=== PATIENT | female | born 1960 | race Caucasian/White ===

== ENCOUNTER → 2017-04-25 18:31 | Outpatient (CLI) | payer OTHER, SELFPAY | PROVIDERS: Visit Provider Nurse Practitioner Women's Health | DX: N39.0 Urinary tract infection, site not specified (principal) | CPT/HCPCS: 87086; 87088; 87186 ==

== ENCOUNTER → 2017-06-07 14:40 | Outpatient (CLI) | payer OTHER, SELFPAY ==
[2017-06-07 15:20] LABS: Anion Gap 6 (5-15); Chloride 102 mmol/L (98-107); Potassium 3.7 mmol/L (3.5-5.1); Sodium Level 138 mmol/L (136-145)
== END ==
PROVIDERS: Family Provider Family Medicine; PCP Family Medicine; Visit Provider Otolaryngology Otolaryngology/Facial Plastic Surgery
DX: Z79.899 Other long term (current) drug therapy (principal)
CPT/HCPCS: 36415; 80051

== ENCOUNTER → 2017-08-29 16:52 | Outpatient (CLI) | payer OTHER, SELFPAY | PROVIDERS: Family Provider Family Medicine; PCP Family Medicine; Visit Provider Nurse Practitioner Adult Health | DX: N39.0 Urinary tract infection, site not specified (principal) | CPT/HCPCS: 87077; 87086; 87088; 87186 ==

== ENCOUNTER → 2018-05-02 14:36 | Outpatient (CLI) | payer OTHER, SELFPAY ==
[2018-03-04 15:04] VITALS: BMI 21.4
--- NOTE | 2018-05-02 14:39 | BI_ITS ---
MAMMOGRAPHY - BILATERAL SCREENING REASON FOR EXAM: Female, 58 years old. Routine annual screening examination. PERTINENT HISTORY: Non-contributory. Chronic inversion of the left nipple. TECHNIQUE: Digital bilateral breast mukesh (3D mammographic acquisition) in the CC and MLO projections. 2-D mediolateral oblique (MLO) and craniocaudad (CC) views of both breasts were obtained. CAD: Full Field Digital Mammography with Computer Added Detection was performed. COMPARISON: Comparison is made with prior abdomen examination dated March 20, 2017. FINDINGS: Breast Composition: There are scattered areas of fibroglandular density. There are no dominant masses or suspicious calcifications. Stable small bilateral benign appearing axillary lymph nodes. No other significant abnormalities are identified. There has been no significant change since the prior study. BI/SCREENING MAMM (CAD), BILAT IMPRESSION: Stable bilateral screening mammogram. Yearly follow-up mammogram recommended. (A) ASSESSMENT CATEGORY: BIRADS Category 2: Benign. A letter regarding these results will be sent to the patient by the facility within 30 days. Approximately 10% of breast cancers are not detected by mammography. A normal mammogram should not delay biopsy of a clinically suspicious abnormality. [id number] Electronically Signed: Brice Ott MD at 11:16 EST , Service support ,
== END ==
PROVIDERS: Family Provider Family Medicine; PCP Family Medicine; Referring Provider Nurse Practitioner Women's Health; Visit Provider Nurse Practitioner Women's Health
DX: Z12.31 Encounter for screening mammogram for malignant neoplasm of breast (principal)
CPT/HCPCS: 77063; 77067

== ENCOUNTER → 2018-07-25 14:11 | Outpatient (CLI) | payer OTHER, SELFPAY ==
[2018-07-25 09:59] VITALS: BMI 21.4
[2018-07-25 14:50] LABS: Bacteria 0 SEEN /hpf (None Seen); Mucous, Urine 0 SEEN /hpf (<or=2+); Red Blood Cells-Urine 0 SEEN /hpf (0-5)
[2018-07-25 15:17] LABS: Color, Urine Yellow (Yellow); Glucose, Dipstick Normal (Normal); Ketone-Dipstick Negative (Negative); Leukocyte Esterase-Dipstick 100 /ul (Negative); Nitrite-Dipstick Negative (Negative); Occult Blood-Urine 50 /ul (Negative); Protein-Dipstick Negative (Negative); Specific Gravity, Urine 1.005 (1.002-1.030); Urine Bilirubin Dipstick Negative (Negative); Urine Clarity Sl. Cloudy (Clear); Urine Urobilinogen Normal (Normal)
[2018-07-25 15:32] LABS: Squamous Epithelial Cells - UA 0-5 SEEN /hpf (5-10); White Blood Cells 0-5 SEEN /hpf (0-5)
== END ==
PROVIDERS: Family Provider Family Medicine; PCP Family Medicine; Referring Provider Physician Assistant Medical; Visit Provider Physician Assistant Medical
DX: R30.0 Dysuria (principal)
CPT/HCPCS: 81001; 87086; 87088

== ENCOUNTER → 2019-03-31 13:42 | Outpatient (CLI) | payer OTHER, SELFPAY ==
[2019-03-31 09:52] VITALS: BMI 21.4
[2019-04-07 09:42] LABS: HPV APTIMA, High Risk Negative (Negative)
== END ==
PROVIDERS: Family Provider Family Medicine; PCP Family Medicine; Referring Provider Nurse Practitioner Women's Health; Visit Provider Nurse Practitioner Women's Health
DX: Z12.4 Encounter for screening for malignant neoplasm of cervix (principal)
CPT/HCPCS: 87624; 88175; G0145

== ENCOUNTER → 2019-05-04 14:42 | Outpatient (CLI) | payer OTHER, SELFPAY ==
[2019-03-31 09:52] VITALS: BMI 21.4
--- NOTE | 2019-05-04 14:43 | BI_ITS ---
MAMMOGRAPHY - BILATERAL SCREENING REASON FOR EXAM: Female, 59 years old. Routine annual screening examination. PERTINENT HISTORY: Non-contributory. Persistent left nipple inversion. TECHNIQUE: Digital bilateral breast nader (3D mammographic acquisition) in the CC and MLO projections. 2-D mediolateral oblique (MLO) and craniocaudad (CC) views of both breasts were obtained. CAD: Full Field Digital Mammography with Computer Added Detection was performed. COMPARISON: Comparison is made with prior examination dated May 02, 2018. FINDINGS: Breast Composition: There are scattered areas of fibroglandular density. There are no dominant masses or suspicious calcifications. Stable small bilateral benign appearing axillary lymph nodes. No other significant abnormalities are identified. There has been no significant change since the prior study. BI/SCREEN MAMM (CAD) W/NADER BILAT IMPRESSION: Stable bilateral screening mammogram. Yearly follow-up mammogram recommended. (A) ASSESSMENT CATEGORY: BIRADS Category 2: Benign. A letter regarding these results will be sent to the patient by the facility within 30 days. Approximately 10% of breast cancers are not detected by mammography. A normal mammogram should not delay biopsy of a clinically suspicious abnormality. [id number] Electronically Signed: Brice Ott, at 15:31 EST , Service support ,
== END ==
PROVIDERS: Family Provider Family Medicine; PCP Family Medicine; Referring Provider Nurse Practitioner Women's Health; Visit Provider Nurse Practitioner Women's Health
DX: Z12.31 Encounter for screening mammogram for malignant neoplasm of breast (principal)
CPT/HCPCS: 77063; 77067

== ENCOUNTER → 2019-10-19 16:31 | Outpatient (CLI) | payer OTHER, SELFPAY ==
[2019-08-25 06:17] VITALS: BMI 21.4
== END ==
PROVIDERS: PCP Family Medicine; Referring Provider Nurse Practitioner Adult Health; Visit Provider Nurse Practitioner Adult Health
DX: R82.998 Other abnormal findings in urine (principal)
CPT/HCPCS: 87086; 87088

== ENCOUNTER 2020-07-03 10:55 | Emergency (ER) | payer OTHER, SELFPAY ==
[2019-08-25 06:17] VITALS: BMI 21.4
[2020-07-03 10:55] VITALS: BP 123/76; PULSE 125; RESP 16; TEMP 36.8; O2SAT 100; BMI 17.4
--- NOTE | 2020-07-03 11:20 | RAD_ITS ---
STUDY: X-RAY - UNILATERAL RIBS ( RIGHT ) WITH CHEST REASON FOR EXAM: Female, 60 years old. Fall TECHNIQUE - RIBS: 2 view(s) of the ribs. TECHNIQUE - CHEST: Single frontal view of the chest. COMPARISON: None. FINDINGS - RIBS: Normal visualized ribs without a demonstrated fracture. FINDINGS - CHEST: The lungs are clear and expanded. There is no demonstrated pleural abnormality. Normal size heart. Normal mediastinum and maggie. Normal visualized pulmonary arteries. Normal visualized aortic arch and descending thoracic aorta. Normal visualized thoracic spine. Normal visualized ribs, clavicles, and shoulders. There is no demonstrated abnormality of the visualized soft tissue structures of the upper abdomen. RAD/Ribs Uni Min 3V w/PA Chest IMPRESSION: RIBS: No demonstrated acute rib fracture. CHEST: No active pulmonary disease. Electronically Signed: Neri Hung MD at 12:34 EDT Tel , Service support ,
--- NOTE | 2020-07-03 11:38 | ED.VISSUMM ---
- ER Visit Summary Date of Service: 07/03/20 Chief Complaint: Fall History of Present Illness: The patient is a 60 F presenting after fall. Patient states she was walking around a pond and was chased by a [place] goose. The goose knocked her over and landed on her back. It hit her in the head. She did not lose consciousness. She has abrasion to her scalp. She is not on anticoagulants. Her tetanus is up-to-date. Denies other complaints. Physical Examination: Vitals are stable. Patient is afebrile. Alert no acute distress. HEENT exam abrasion right posterior scalp with no active bleeding Neck is nontender Lungs are clear and equal bilaterally. Right lateral posterior rib tenderness with no crepitus Heart is regular rate and rhythm. Abdomen is soft nontender nondistended. Back: No midline tenderness Extremities are unremarkable. Skin is warm and dry. No focal neurologic deficit. Remainder of exam is unremarkable. Emergency Department Course and Treatment: Wound was irrigated. Right rib series read by myself and radiology shows RIBS: No demonstrated acute rib fracture. CHEST: No active pulmonary disease. Patient was given an incentive spirometer. She was given prescription for Augmentin. Advised to follow-up with her primary care physician. Advised return to ED for worsening complaints. Disposition: Discharge home Impression: Status post fall, scalp abrasion, rib contusion This note was generated with [employer] dictation software. It may contain incorrect words, spelling, and punctuation that were not noted in review of the chart prior to signing ED Disposition - Plan for ED Patient: Instructions: ED Contusion, Rib Prescriptions: Amox/Clavulanate Tablet [Augmentin Tablet] 875 mg PO Q12H #14 tab Prescription Printed Referrals: Dionisio De La Garza DO [Primary Care Provider] -
--- NOTE | 2020-07-03 12:42 | ED.DEP ---
ED Disposition - Plan for ED Patient: Instructions: ED Contusion, Rib Prescriptions: Amox/Clavulanate Tablet [Augmentin Tablet] 875 mg PO Q12H #14 tab Prescription Printed Referrals: Dionisio De La Garza DO [Primary Care Provider] -
[2020-07-03 12:50] VITALS: BP 127/79; PULSE 89; RESP 16
[2020-07-03] MEDS: Amox/Clavulanate 875 MG Tablet PO (12:52)
== END 2020-07-03 12:53 | disposition home or self-care (01) ==
LOC: ED 11:41
PROVIDERS: Emergency Provider Emergency Medicine; PCP Family Medicine
DX: S00.01XA Abrasion of scalp, initial encounter (principal); S20.219A Contusion of unspecified front wall of thorax, initial encounter; W19.XXXA Unspecified fall, initial encounter; Y93.01 Activity, walking, marching and hiking
CPT/HCPCS: 71101; 99283

== ENCOUNTER → 2020-07-04 12:48 | Outpatient (CLI) | payer OTHER, SELFPAY ==
[2020-07-04 10:58] VITALS: BMI 20.2
[2020-07-06 13:29] LABS: HPV APTIMA, High Risk Negative (Negative)
== END ==
PROVIDERS: PCP Family Medicine; Referring Provider Obstetrics & Gynecology; Visit Provider Obstetrics & Gynecology
DX: Z12.4 Encounter for screening for malignant neoplasm of cervix (principal)
CPT/HCPCS: 87624; 88175; G0145

== ENCOUNTER → 2020-08-05 10:07 | Outpatient (CLI) | payer OTHER, SELFPAY ==
[2019-08-25 06:17] VITALS: BMI 21.4
[2020-07-04 10:58] VITALS: BMI 20.2
--- NOTE | 2020-08-05 10:13 | BI_ITS ---
MAMMOGRAPHY - BILATERAL SCREENING REASON FOR EXAM: Female, 60 years old. Routine annual screening examination. PERTINENT HISTORY: Non-contributory. Chronically inverted left nipple. TECHNIQUE: Digital bilateral breast nader (3D mammographic acquisition) in the CC and MLO projections. 2-D mediolateral oblique (MLO) and craniocaudad (CC) views of both breasts were obtained. CAD: Full Field Digital Mammography with Computer Added Detection was performed. COMPARISON: Comparison is made with prior study dated 05/04/2019 and 05/02/2018. FINDINGS: Breast Composition: There are scattered areas of fibroglandular density. There are no dominant masses or suspicious calcifications. Stable small benign-appearing bilateral axillary lymph nodes. Stable retraction of the left nipple No other significant abnormalities are identified. There has been no significant change since the prior study. BI/SCRN MAMM (CAD)W/NADER BILAT IMPRESSION: Stable bilateral screening mammogram. Yearly follow-up mammogram recommended. (A) ASSESSMENT CATEGORY: BIRADS Category 2: Benign. A letter regarding these results will be sent to the patient by the facility within 30 days. Approximately 10% of breast cancers are not detected by mammography. A normal mammogram should not delay biopsy of a clinically suspicious abnormality. [id number] Electronically Signed: Brice Ott MD at 10:58 EDT , Service support ,
== END ==
PROVIDERS: PCP Family Medicine; Referring Provider Nurse Practitioner Women's Health; Visit Provider Nurse Practitioner Women's Health
DX: Z12.31 Encounter for screening mammogram for malignant neoplasm of breast (principal)
CPT/HCPCS: 77063; 77067

== ENCOUNTER → 2021-08-07 | Outpatient (CLI) | payer OTHER, SELFPAY ==
--- NOTE | 2021-08-07 08:21 | BI_ITS ---
MAMMOGRAPHY - BILATERAL SCREENING REASON FOR EXAM: Female, 61 years old. Routine annual screening examination. PERTINENT HISTORY: Non-contributory. TECHNIQUE: Digital bilateral breast nader (3D mammographic acquisition) in the CC and MLO projections. 2-D mediolateral oblique (MLO) and craniocaudad (CC) views of both breasts were obtained. CAD: Full Field Digital Mammography with Computer Added Detection was performed. COMPARISON: Comparison is made with prior study dated 08/05/2020 and 05/04/2019. FINDINGS: Breast Composition: There are scattered areas of fibroglandular density. There are no dominant masses or suspicious calcifications. Stable small benign-appearing bilateral axillary lymph nodes. No other significant abnormalities are identified. There has been no significant change since the prior study. BI/SCRN MAMM (CAD)W/NADER BILAT IMPRESSION: Stable bilateral screening mammogram. Yearly follow-up mammogram recommended. (A) ASSESSMENT CATEGORY: BIRADS Category 2: Benign. A letter regarding these results will be sent to the patient by the facility within 30 days. Approximately 10% of breast cancers are not detected by mammography. A normal mammogram should not delay biopsy of a clinically suspicious abnormality. [id number] Electronically Signed: Brice Ott MD at 9:16 EDT ,
== END | disposition home or self-care (01) ==
LOC: OPBI 08:18
PROVIDERS: PCP Family Medicine; Referring Provider Nurse Practitioner Women's Health; Visit Provider Nurse Practitioner Women's Health
DX: Z12.31 Encounter for screening mammogram for malignant neoplasm of breast (principal)
CPT/HCPCS: 77063; 77067

== ENCOUNTER → 2022-08-13 | Outpatient (CLI) | payer OTHER, SELFPAY ==
--- NOTE | 2022-08-13 08:10 | BI_ITS ---
MAMMOGRAPHY - BILATERAL SCREENING REASON FOR EXAM: Female, 62 years old. Routine annual screening examination. PERTINENT HISTORY: Non-contributory. Chronic inversion of the left nipple shadow. TECHNIQUE: Digital bilateral breast nader (3D mammographic acquisition) in the CC and MLO projections. 2-D mediolateral oblique (MLO) and craniocaudad (CC) views of both breasts were obtained. CAD: Full Field Digital Mammography with Computer Added Detection was performed. COMPARISON: Comparison is made with prior study of August 07, 2021 and August 05, 2020. FINDINGS: Breast Composition: There are scattered areas of fibroglandular density. There are no dominant masses or suspicious calcifications. Stable small benign-appearing bilateral axillary lymph nodes. Stable inversion of the left nipple. No other significant abnormalities are identified. There has been no significant change since the prior study. BI/SCRN MAMM (CAD)W/NADER BILAT IMPRESSION: Stable bilateral screening mammogram. Yearly follow-up mammogram recommended. (A) ASSESSMENT CATEGORY: BIRADS Category 2: Benign. A letter regarding these results will be sent to the patient by the facility within 30 days. Approximately 10% of breast cancers are not detected by mammography. A normal mammogram should not delay biopsy of a clinically suspicious abnormality. [id number] Electronically Signed: Brice Ott MD at 10:13 EDT ,
== END | disposition home or self-care (01) ==
LOC: OPBI 08:09
PROVIDERS: PCP Family Medicine; Referring Provider Nurse Practitioner Women's Health; Visit Provider Nurse Practitioner Women's Health
DX: Z12.31 Encounter for screening mammogram for malignant neoplasm of breast (principal)
CPT/HCPCS: 77063; 77067

== ENCOUNTER → 2023-09-17 | Outpatient (CLI) | payer OTHER, SELFPAY ==
--- NOTE | 2023-09-17 13:28 | BI_ITS ---
MAMMOGRAPHY - BILATERAL SCREENING REASON FOR EXAM: Female, 63 years old. Routine annual screening examination. PERTINENT HISTORY: Non-contributory. Chronic inversion of the left areola. TECHNIQUE: Digital bilateral breast nader (3D mammographic acquisition) in the CC and MLO projections. 2-D mediolateral oblique (MLO) and craniocaudad (CC) views of both breasts were obtained. CAD: Full Field Digital Mammography with Computer Added Detection was performed. COMPARISON: Comparison is made with prior study dated August 13, 2022 and August 07, 2021. FINDINGS: Breast Composition: There are scattered areas of fibroglandular density. There are no dominant masses or suspicious calcifications. Stable small benign-appearing bilateral axillary lymph nodes. No other significant abnormalities are identified. There has been no significant change since the prior study. BI/SCRN MAMM (CAD)W/NADER BILAT IMPRESSION: Stable bilateral screening mammogram. Yearly follow-up mammogram recommended. (A) ASSESSMENT CATEGORY: BIRADS Category 2: Benign. A letter regarding these results will be sent to the patient by the facility within 30 days. Approximately 10% of breast cancers are not detected by mammography. A normal mammogram should not delay biopsy of a clinically suspicious abnormality. [id number] Electronically Signed: Brice Ott MD at 14:13 EDT ,
== END | disposition home or self-care (01) ==
LOC: OPBI 13:28
PROVIDERS: PCP Family Medicine; Referring Provider Nurse Practitioner Women's Health; Visit Provider Nurse Practitioner Women's Health
DX: Z12.31 Encounter for screening mammogram for malignant neoplasm of breast (principal)
CPT/HCPCS: 77063; 77067

== ENCOUNTER → 2024-01-20 | Outpatient (CLI) | payer OTHER, SELFPAY | END | disposition home or self-care (01) | LOC: LABSPEC 10:15 | PROVIDERS: PCP Family Medicine; Referring Provider Physician Assistant; Visit Provider Physician Assistant | DX: N39.0 Urinary tract infection, site not specified (principal) | CPT/HCPCS: 87086; 87088 ==

== ENCOUNTER → 2024-09-23 | Outpatient (CLI) | payer OTHER, SELFPAY ==
--- NOTE | 2024-09-23 14:30 | BI_ITS ---
EXAM: SCRN MAMM (CAD)W/NADER BILAT DATE: 09/23/2024 CLINICAL HISTORY: F, Age 64 y/o , SCREEN FOR BREAST CANCER TECHNIQUE: SCRN MAMM (CAD)W/NADER BILAT COMPARISON: Prior exam(s) dated 09/17/2023, 08/13/2022, 08/07/2021. FINDINGS: TISSUE DENSITY: There are scattered areas of fibroglandular density. Bilateral Breast Mammographic Findings: No significant masses, calcifications or other abnormalities are identified. BI/SCRN MAMM (CAD)W/NADER BILAT IMPRESSION: There is no mammographic evidence of malignancy. OVERALL FINAL ASSESSMENT BI-RADS 1: NEGATIVE. RECOMMEND ANNUAL MAMMOGRAPHIC SCREENING. RECOMMENDATION: Routine annual follow-up in 1 Year A letter with findings and recommendations will be mailed to the patient. Reading Location: [id number]
--- OUTSIDE RECORDS SUMMARY | 2024-09-23 22:44 | XMS RPT_ITS | CCD ---
Author Organization [facility] Care Team Providers Care Sales Representative [employer] Name Role Phone SHASHANK OLSON (DIRECTOR PUBLIC SERVICE) Unavailable Unavailable Dr. Dionisio De La Garza Primary Care Provider [phone] Dr. Dionisio De La Garza Referring Provider Simon OROPEZA, KOLTONC Shashank Attending Provider Dionisio De La Garza DO Primary Care Provider DIONISIO DE LA GARZA Attending Unavailable DIONISIO DE LA GARZA Primary Care Unavailable Dionisio De La Garza Primary Care Unavailable Dionisio De La Garza Referring Unavailable Mehran Soriano Attending Unavailable Dionisio De La Garza Primary Care Unavailable Mehran Soriano Attending Unavailable Mehran Soriano Referring Unavailable Shashank Olson NP Attending Unavailable Shashank Olson NP Referring Unavailable Dionisio De La Garza Primary Care Unavailable Dr. Dionisio De La Garza DO Primary Care Provider Shashank Goldstein Attending Provider [phone] Shashank Goldstein Referring Provider [phone] Dr. Dionisio De La Garza DO Referring Provider [phone] Medications Current Medications Medication Drug Class(es) Dates Sig (Normalized) Sig (Original) cholecalciferol 0.025 mg oral tablet (6 sources) Vitamin D Start: 12-30-2020 take 1 tablet by mouth once daily cholecalciferol (Vitamin D-3) 25 MCG (1000 UT) tablet Take 1 tablet by mouth daily. 12/30/2020 Active codeine phosphate 2 mg/ml / guaiFENesin 20 mg/ml oral solution (1 source) Opioid Agonist Start: 03-11-2023 End: 03-16-2023 take 5 mL by mouth every six hours as needed for cough guaiFENesin-codeine (Robitussin-AC) 100-10 MG/5ML syrup Indications: Acute URI Take 5 mL by mouth every 6 hours as needed for cough for up to 5 days. 100 mL 0 03/11/2023 03/16/2023 Active estradiol 0.1 mg/ml vaginal cream (19 sources) Estrogen Start: 10-31-2021 estradiol (Estrace) 0.1 MG/GM vaginal cream Insert 2 g into the vagina daily. 10/31/2021 Active Start: 10-31-2021 estradiol (Est race) 0.1 MG/GM vaginal cream Start: 03-04-2018 End: 06-13-2021 Estradiol (Estrace) 0.01 % ( 0.1 mg/gram) cream Active 0 VAGINAL .COMPLEX 42.5 June 13, 2021 11:14am pea sized amount VAGINAL twice a week; Start: 03-04-2018 End: 09-23-2024 Estradiol (Estrace) 0.01 % ( 0.1 mg/gram) cream Active 0 VAGINAL .COMPLEX 42.5 September 23, 2024 3:08pm pea sized amount VAGINAL twice a week; Start: 04-25-2017 End: 03-04-2018 Estradiol (Yuvafem) 10 mcg t ablet Discontinued 10 MCG VAGINAL TWICE A WEEK January 09, 2018 8:18am March 04, 2018 4:17pm Start: 04-25-2017 End: 03-04-2018 Estradiol (Yuvafem) 10 mcg t ablet Discontinued 10 ug VAGINAL TWICE A WEEK January 09, 2018 8:18am March 04, 2018 4:17pm hydroCHLOROthiazide 25 mg / triamterene 37.5 mg oral capsule (12 sources) Potassium-sparing Diuretic, Thiazide Diuretic Start: 03-02-2022 End: 03-08-2025 take 1 capsule by mouth once daily in the morning triamterene-hydroCHLOROthiazide (Dyazide) 37.5-25 MG capsule Take 1 capsule by mouth every morning. 90 capsule 3 09/09/2024 03/08/2025 Active Start: 07-04-2020 take 1 tablet by lashawn th once daily Triamterene-Hydrochlorothiazid Active 1 TABLET PO DAILY July 04, 2020 11:01am Start: 07-04-2020 Triamterene-Hy drochlorothiazid 37.5-25 mg tablet Active 1 {tbl} PO DAILY July 04, 2020 12:00am meclizine hydrochloride 25 mg oral tablet (8 sources) Antiemetic Start: 04-25-2017 take 25 mg by mouth once Meclizine Active 25 MG PO ONCE April 25, 2017 2:56pm meclizine (Antiv ert) 25 MG tablet Take 25 mg by mouth if needed. Active potassium chloride 10 meq extended release oral capsule (2 sources) Start: 09-23-2024 take 1 capsule by mouth once daily Potassium Chloride 10 mEq capsule, extended release Active 10 meq PO daily September 23, 2024 12:00am Start: 09-13-2024 End: 09-13-2025 take 1 tablet by mouth twice daily potassium chloride CR (Klor-Con M10) 10 MEQ ER tablet Take 1 tablet (10 mEq) by mouth 2 times daily. Do not crush or chew. 180 tablet 3 09/13/2024 09/13/2025 Active predniSONE 10 mg oral tablet (1 source) Start: 03-11-2023 End: 03-21-2023 take 5 tablets by mouth once daily, then take 4 tablets by mouth once daily, then take 3 tablets by mouth once daily, then take 2 tablets by mouth once daily, then take 1 tablet by mouth once daily predniSONE (Deltasone) 10 MG tablet Indications: Acute URI Take 5 tablets (50 mg) by mouth daily for 2 days, THEN 4 tablets (40 mg) daily for 2 days, THEN 3 tablets (30 mg) daily for 2 days, THEN 2 tablets (20 mg) daily for 2 days, THEN 1 tablet (10 mg) daily for 2 days. 30 tablet 0 03/11/2023 03/21/2023 Active Completed/Discontinued Medications Medication Drug Class(es) Dates Sig (Normalized) Sig (Original) amoxicillin 875 mg / clavulanate 125 mg oral tablet (2 sources) Penicillin-class Antibacterial Start: 07-03-2020 End: 08-07-2021 take 875 mg by mouth every twelve hours Amoxicillin-Pot Clavulanate Discontinued 875 MG PO Q12H July 03, 2020 12:42pm August 07, 2021 8:40am aspirin 81 mg delayed release oral tablet (5 sources) Platelet Aggregation Inhibitor, Nonsteroidal Anti-inflammatory Drug Start: 12-30-2020 End: 09-09-2024 take 1 tablet by mouth once daily aspirin 81 MG EC tablet Take 1 tablet by mouth daily. 12/30/2020 09/09/2024 Discontinued (Therapy completed) azelastine hydrochloride 0.5 mg/ml ophthalmic solution (2 sources) Histamine-1 Receptor Antagonist Start: 08-06-2023 End: 09-09-2024 take 1 drop(s) into the eye(s) twice daily azelastine (Optivar) 0.05 % ophthalmic solution Administer 1 drop into the left eye 2 times daily. 6 mL 1 08/06/2023 09/09/2024 Discontinued (Therapy completed) azithromycin 250 mg oral tablet (4 sources) Macrolide Antimicrobial Start: 03-11-2023 End: 08-06-2023 azithromycin (Zithromax) 250 MG tablet Indications: Acute URI Take 2 tabs (500 mg) by mouth today, than 1 daily for 4 days. 6 tablet 0 03/11/2023 08/06/2023 Discontinued (Therapy completed) benzonatate 100 mg oral capsule (5 sources) Non-narcotic Antitussive Start: 03-08-2023 End: 09-17-2023 take 2 capsules by mouth three times daily as needed for cough Benzonatate 100 mg capsule Discontinued 200 mg PO THREE TIMES A DAY as needed for cough March 08, 2023 1:00am September 17, 2023 2:03pm End: 08-06-2023 take 1 capsule by mouth three times daily as needed for cough benzonatate (Tessalon) 100 MG capsule Take 100 mg by mouth 3 times daily as needed for cough. Do not crush or chew. 0 08/06/2023 Discontinued (Therapy completed) ciprofloxacin 500 mg oral tablet (2 sources) Quinolone Antimicrobial Start: 04-25-2017 End: 04-30-2017 take 500 mg by mouth twice daily Ciprofloxacin Hcl Discontinued 500 MG PO TWICE A DAY 10 April 25, 2017 3:01pm April 30, 2017 1:06am 12 hr guaiFENesin 1200 mg extended release oral tablet (5 sources) Start: 03-08-2023 End: 09-17-2023 take 1 tablet by mouth every twelve hours Guaifenesin 1,200 mg tablet extended release 12hr Discontinued 1200 mg PO Q12H March 08, 2023 1:00am September 17, 2023 2:03pm End: 08-06-2023 guaiFENesin (Mucinex) 600 MG 12 hr tablet Take 1,200 mg by mouth 2 times daily. Do not crush, chew, or split. 0 08/06/2023 Discontinued (Therapy completed) hydroCHLOROthiazide 12.5 mg oral capsule (2 sources) Thiazide Diuretic Start: 04-10-2017 End: 07-04-2020 take 12.5 mg by mouth once daily Hydrochlorothiazide Discontinued 12.5 MG PO daily April 10, 2017 12:50pm July 04, 2020 11:01am methylPREDNISolone 4 mg oral tablet (1 source) Corticosteroid Start: 08-30-2022 End: 09-05-2022 take 1 tablet by mouth once Methylprednisolone (Medrol (Dom)) 4 mg tablets,dose pack Discontinued 4 mg PO per package directions 21 6 August 30, 2022 12:00am September 04, 2022 12:00am September 05, 2022 12:04am nitrofurantoin, macrocrystals 25 mg / nitrofurantoin, monohydrate 75 mg oral capsule (3 sources) Nitrofuran Antibacterial Start: 01-20-2024 End: 01-25-2024 take 1 capsule by mouth every twelve hours at mealtime Nitrofurantoin Monohyd/M-Cryst (Macrobid) 100 mg capsule Discontinued 100 mg PO Q12H 10 5 January 20, 2024 12:00am January 24, 2024 12:00am January 25, 2024 12:14am must administer with a meal/food Start: 08-25-2019 End: 09-01-2019 take 1 capsule by mouth every twelve hours at mealtime Nitrofurantoin Monohyd/M-Cryst Discontinued 1 CAP PO Q12H 14 7 August 25, 2019 6:16am September 01, 2019 12:02am administer with a meal/food; swallow whole; do not open, crush, dissolve , or chew phenazopyridine hydrochloride 100 mg oral tablet (2 sources) Start: 04-25-2017 End: 04-26-2017 take 100 mg by mouth three times daily at mealtime Phenazopyridine Discontinued 100 MG PO THREE TIMES A DAY 12 0 April 25, 2017 3:04pm April 26, 2017 1:07am administer with a full glass of water after each meal Triamterene-Hctz 37.5-25 mg Cp (2 sources) Start: 07-03-2020 End: 07-04-2020 take 1 tablet by mouth once daily Triamterene-Hctz 37.5-25 mg Cp Discontinued 1 TABLET PO DAILY July 03, 2020 11:28am July 04, 2020 11:01am Start: 07-03-2020 End: 07-04-2020 Triamterene-Hctz 37.5-25 mg Cp Discontinued 1 {tbl} PO DAILY July 03, 2020 12:00am July 04, 2020 11:01am Problems Active Problems Problem Classification Problem Date Documented Date Episodic/Chronic Allergic reactions (1 source) Allergic disorder of skin; Translations: [Allergic contact dermatitis, unspecified cause] 08-06-2023 Episodic Conditions associated with dizziness or vertigo (10 sources) Meniere's disease; Translations: [Meniere's disease, unspecified ear] Onset: 11-03-2018 01-11-2022 Chronic Fluid and electrolyte disorders (1 source) Hypokalemia; Translations: [Hypokalemia] 09-13-2024 Episodic Inflammation; infection of eye (except that caused by tuberculosis or sexually transmitteddisease) (1 source) Allergic conjunctivitis of left eye; Translations: [Acute atopic conjunctivitis, left eye] 08-06-2023 Episodic Menopausal disorders (3 sources) Atrophic vaginitis; Translations: [Postmenopausal atrophic vaginitis] Chronic Comment on above: vaginal estrogen Other upper respiratory disease (1 source) Seasonal allergy; Translations: [Other seasonal allergic rhinitis] 08-30-2022 Chronic Other upper respiratory infections (4 sources) Acute upper respiratory infection; Translations: [Acute upper respiratory infection, unspecified] Onset: 09-09-2024 03-11-2023 Episodic Residual codes; unclassified (2 sources) Family history of cancer; Translations: [Family history of malignant neoplasm, unspecified] 09-17-2023 Episodic Comment on above: rectal, uterine, dis cussed empower testing if desired-declines Residual codes; unclassified (1 source) Family history of malignant neoplasm, unspecified; Translations: [Family history of unspecified malignant neoplasm] Episodic Residual codes; unclassified (2 sources) Family history of malignant neoplasm of digestive organs; Translations: [Family history of malignant neoplasm of digestive organs] Onset: 01-11-2022 Episodic Residual codes; unclassified (1 source) Family history of coronary arteriosclerosis; Translations: [Family history of ischemic heart disease and other diseases of the circulatory system] 09-13-2024 Episodic Unclassified (5 sources) Encounter for screening mammogram for malignant neoplasm of breast; Translations: [Patient encounter status] Onset: 03-20-2017 09-09-2024 Episodic Urinary tract infections (11 sources) Recurrent urinary tract infection; Translations: [Urinary tract infection, site not specified] Onset: 11-03-2018 01-11-2022 Episodic Comment on above: prophylactic antibio tic with intercourse, prescribed by urologist; none since starting vaginal estrogen cream Past or Other Problems Problem Classification Problem Date Documented Da te Episodic/Chronic Residual codes; unclassified (8 sources) Family history of malignant tumor of rectum; Translations: [Family history of malignant neoplasm of digestive organs] Onset: 11-03-2018 01-11-2022 Episodic Results Test Name Value Interpretation Reference Range Facility Office Visiton 09-09-2024 Follow-up visit [id number] Liang 1960 F Date Provider Department Center 09/09/2024 [id number] VALLES [facility] Family History Problem Relation Age of Onset Uterine cancer Mother Comments: age 70 Heart disease Father 70 Comments: age 75 Lupus Sister Comments: of infection, age 45 Coronary artery disease Sister 70 Comments: CABG Diabetes Sister Stroke Sister Comments: age 78 in 10/22 in F No Known Problems Sister No Known Problems Brother No Known Problems Brother Other Brother Comments: in [place] Prostate cancer Brother Comments: alive age 76 Rectal cancer Brother 64 Heart disease Maternal Grandmother Comments: in 70s Heart disease Maternal Grandfather Comments: in 70s No Known Problems Paternal Grandmother Comments: unknown, but in 40s No Known Problems Paternal Grandfather Family Status - Relation Status Age at Mother Father Sister Sister Sister Alive Brother Alive Brother Alive Brother Brother Alive Maternal Grandmother Maternal Grandfather Paternal Grandmother Paternal Grandfather Level of Service:42565 [place] PERIODIC PREVENTIVE MED EST PATIENT 64YRS& OLDER Reason for Visit and Comments: Annual Exam [83] Normal [facility] Progress Noteon 09-09-2024 Progress Note After obtaining cons ent, and per orders of Dr. De La Garza, injection of PREVNAR 20 given in Right deltoid by Génesis Lara MA. Patient instructed to remain in clinic for 20 minutes afterwards, and to report any adverse reaction to me immediately. Did patient supply medication?No Normal [facility] Progress Note [facility] - [address] [facility] [id number] Visit type: Established Patient Reason for Visit: Annual Exam Assessment / Plan: Chevy was seen today for annual exam. Diagnoses and all orders for this visit: Annual physical exam (Primary) - CBC auto differential; Future - Comprehensive metabolic panel; Future - CBC auto differential - Comprehensive metabolic panel Family history of rectal cancer Viral URI Comments: Mild, Robitussin and liquids Lipid screening - Lipid panel; Future - Lipid panel Meniere's disease, unspecified laterality Comments: stable, continue Dyazide Other orders - triamterene-hydroCHLOROth iazide (Dyazide) 37.5-25 MG capsule; Take 1 capsule by mouth every morning. 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 Vitamin D 1000 units, calcium 1200 mg a day [id number] One-A-Day women's vitamin continue exercise 150 minutes/week Subjective: Patient ID: Chevy Shields is a 64 y.o. female. HPI annual physical for patient with stable M?ni?re's disease open Daily Dyazide. Continues not to smoke or drink. She works hard but will be retiring in March. 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 She has deferred colonoscopy Review of Systems mild sinus and head congestion. Negative COVID exam a few days ago. No high fever or purulent phlegm or rhinorrhea. No chest pain or pleurisy. No shortness of breath. No heartburn or abdominal pain. No bowel changes. No constipation diarrhea melena or blood. No postmenopausal vaginal bleeding. No breast complaints. Rare arthralgia. No NSAID use. No skin changes. No anxiety or depression Allergies[1] Current Medications[2] Problem List[3] Social History Tobacco Use ? Smoking status: Former Current packs/day: 0.00 Average packs/day: 0.3 packs/day for 8.0 years (2.0 ttl pk-yrs) Types: Cigarettes Start date: 07/08/1975 Quit date: 07/08/1983 Years since quittin.2 ? Smokeless tobacco: Never Substance Use Topics ? Alcohol use: Yes Alcohol/week: 2.0 standard drinks of alcohol Surgical History[4] Family History[5] Objective: BP 100/69 Pulse 90 Temp 36.3 ?C (97.4 ?F) (Temporal) Ht 5' (1.524 m) Wt 106 lb 6.4 oz (48.3 kg) SpO2 100% BMI 20.78 kg/m? Physical Exam Vitals reviewed. Constitutional: General: She is not in acute distress. Appearance: She is not ill-appearing. HENT: Right Ear: Tympanic membrane normal. Left Ear: Tympanic membrane normal. Nose: No congestion or rhinorrhea. Mouth/Throat: Pharynx: No oropharyngeal exudate or posterior oropharyngeal erythema. Eyes: General: No scleral icterus. Neck: Vascular: No carotid bruit. Comments: No thyroid masses Cardiovascular: Rate and Rhythm: Normal rate and regular rhythm. Pulses: Normal pulses. Heart sounds: Normal heart sounds. No murmur heard. Pulmonary: Effort: Pulmonary effort is normal. Breath sounds: Normal breath sounds. Abdominal: General: Bowel sounds are normal. There is no distension. Palpations: Abdomen is soft. There is no mass. Tenderness: There is no abdominal tenderness. Hernia: No hernia is present. Comments: Slender without hepatosplenomegaly masses or bruits. No adenopathy. Musculoskeletal: Right lower leg: No edema. Left lower leg: No edema. Lymphadenopathy: Cervical: No cervical adenopathy. Skin: General: Skin is warm. Findings: No rash. Neurological: General: No focal deficit present. Mental Status: She is alert and oriented to person, place, and time. Deep Tendon Reflexes: Reflexes normal. Psychiatric: Mood and Affect: Mood normal. Thought Content: Thought content normal. [1] No Known Allergies [2] Current Outpatient Medications: ? cholecalciferol (Vitamin D-3) 25 MCG (1000 UT) tablet, Take 1 tablet by mouth daily., Disp: , Rfl: ? estradiol (Estrace) 0.1 MG/GM vaginal cream, Insert 2 g into the vagina daily., Disp: , Rfl: ? meclizine (Antivert) 25 MG tablet, Take 25 mg by mouth if needed., Disp: , Rfl: ? triamterene-hydroCHLOROth iazide (Dyazide) 37.5-25 MG capsule, Take 1 capsule by mouth every morning., Disp: 90 capsule, Rfl: 3 [3] Patient Active Problem List Diagnosis ? Meniere disease ? Frequent UTI ? Family history of rectal cancer [4] Past Surgical History: Procedure Laterality Date ? APPENDECTOMY 1966 ? SECTION (HISTORICAL) times 2 [5] Family History Problem Relation Name Age of Onset ? Uterine cancer Mother age 70 ? Heart disease Father 70 age 75 ? Lupus Sister Delisa of infection, age 45 ? Coronary artery disease Sister 1/2 Mariah 70 CABG ? Diabetes Sister 1/2 Mariah ? Stroke Sister 1/2 Mariah age 78 in 10/22 in ECF ? No Known Problems Sister Carol ? No Known Problems Brother Shakir ? No Known Problems Brother Mani ? Other ([id number]) Brother Ha (more content not included)... Normal [facility] Urine Cultureon 01-22-2024 URC Below infection leve l. Mixed Gram Pos Gram Neg Org [place] Count 1000-10,000 MIXC Mixed contaminants. Submit a new specimen if indicated. Normal [facility] Comment on above: Performed By: #### M 100.2200 #### [facility] [address] [place], [place], [address] Urgent Care Visit Reporton 1 Urgent Care Visit Report [facility] [address], [address] [place] [address] OFFICE VISIT Date of Service: 01/20/24 MR#: [id number] Acct: [id number] Name: CHEVY SHIELDS JACKI Rep #: [id number] : 1960 Provider: ARTURO Ramires Age/Sex: 63/F Location: [facility] Status: Signed Intake Vital Signs 09/17/23 14:04 01/20/24 06:46 Height 5 ft 5 ft Weight: 109 lb 6 oz BMI 21.3 BP 110/66 Pulse 110 H Temp 98.9 F Temp Source Oral Pulse Oximetry (%) 98 Oxygen Delivery Method room air Intake Visit Reasons: Urinary tract infection Chief Complaint: Annual Allergies No Known Allergies Allergy (Verified 01/20/24 06:56) Medications ???Medication ???Instructions ???Recorded ???Confirmed ???Type meclizine 25 mg tablet 25 mg PO ONCE 04/25/17 01/20/24 History triamterene 37.5 1 tablet PO DAILY 07/04/20 01/20/24 History mg-hydrochlorothiazide 25 mg tablet estradiol 0.01% (0.1 mg/gram) See Rx Instructions vaginal 09/17/23 01/20/24 Rx vaginal cream (Estrace) .COMPLEX #42.5 grams nitrofurantoin 100 mg PO Q12H 5 days #10 caps 01/20/24 01/20/24 Rx monohydrate/macrocrystals 100 mg capsule (Macrobid) Nurse's Note: Patient presented for a UTI, Patient states this started yesterday. She has back aches,chills, burning and constantly having to go [facility] Medical History (Updated 09/17/23 @ 14:13 by Shashank Olson DIRECTOR PUBLIC SERVICE, DIRECTOR PUBLIC SERVICE-C) UTI (urinary tract infection) Meniere disease Surgical History History of History of appendectomy Family History Mother Uterine cancer Brother Colon cancer, Onset Age: 63 rectal Cancer, Onset Age: 70 prostate Social History current occupational status: employed current occupation: [employer] Smoking Status: Never smoker alcohol intake: never substance use type: does not use caffeine: Yes what type of physical activity do you participate in: walking seatbelt use: always do you feel safe at home: Yes additional social history: Spouse Jt LANCE HPI Chief Complaint: Annual Details: CHEVY SHIELDS, is a 63 F who presents to the office today for initial evaluation at the [facility] for less than 24-hour history of dysuria and urinary frequency with suprapubic pressure. No complaints of fever, chills, sweats, lightheadedness/dizziness , nausea/vomiting, or chest pain/shortness of breath/dyspnea on exertion/mid back pain - though admits mild aching low back pain. No changes in color/ character stool; no new urethral/ vaginal discharge - though notes urine is slightly darker in cloudier than usual. No [id number] products taken to assist. No other associated symptoms and no alleviating/aggravating factors. ROS Const Constitutional: No other (As above) Exam Const General: cooperative, healthy appearing and no acute distress Orientation: alert, awake and oriented x3 Chest Chest palpation inspection: normal inspection of the chest Resp Effort Inspection: normal respiratory effort and able to speak in complete sentences Cardio Rate: regular rate Pulses: radial pulses present GI Inspection: normal to inspection Palpation: soft and tender suprapubic (Patient describes upon self-palpation) General: No CVA tenderness Skin General: no rashes or lesions noted Neuro General: patient alert, patient awake and patient oriented x3 Cognition: normal cognition Speech: speech normal Psych Appearance: grossly normal Mental Status: mental status grossly normal Mood: congruent mood Affect: normal affect Speech and Movement: speech and movement normal Attitude: cooperative Diagnoses Urinary tract infection N39.0 Assessment and Plan Assessment and Plan (1) Urinary tract infection: Status: Acute Plan: See POC results; urine sent to lab for C/S. Macrobid as prescribed today. Supportive measures as instructed today. Follow-up with PCP in 3 to 5 days should symptoms not improve, sooner should symptoms only worsen or any other concerns develop. Patient states acknowledging understanding all the above Results POC Urinalysis Dip (Clinic) Office Urine Color Yellow Last Edit by Kimmy Morocho MA on 01/20/24 06:59 Office Urine Clarity Cloudy Last Edit by Kimmy Morocho MA on 01/20/24 06:59 Office Urine Glucose Negative Last Edit by Kimmy Morocho MA on 01/20/24 06:59 Office Urine Ketones Trace (5) Last Edit by Kimmy Morocho MA on 01/20/24 06:59 Off Ur Spec [place] 1.010 Last Edit by Kimmy Morocho MA on 01/20/24 06:59 Office Urine pH 8.5 Last Edit by Kimmy Morocho MA on 01/20/24 06:59 Office Urine Bilirubin Negative Last Edit by Kimmy Morocho MA on 01/20/24 (more content not included)... Normal [facility] CNCOon 03-20-2017 CNCO HNO ID: [id number] thor: Mammography CoordinatorService: (none)Author Type: PhysicianType: LetterFiled: 03/21/2017 11:32 PMNote Text:March 20, 2017 PID: [id number] [address]. [id number] [place], [place] [address]Uxjz Ms. Shields,We are pleased to inform you that the results of your recent breastimaging exam on 03/20/2017 are normal. Early detection of cancer is veryimportant. We also understand recommendations regarding breast cancerscreening are controversial. Please discuss with your primary careprovider which strategy is best for you and whether a mammogram is rightfor you.Your imaging studies and [facility] and are available for yourcontinuing care.Thank you for allowing us to help in meeting your health care needs.Sincerely,Dr. MotaInterpreting RadiologistWSan [facility] (Normal over 40) Normal [facility] SCREENINGon 03-20-2017 [facility] SCREENING * * *Final Report* * *DATE OF EXAM: Mar 20 2017 3:32PM [facility] - [facility] SCREENING / REASON: SCREEENING * * * * Physician Interpretation * * * *RESULT: #[id number] - [facility] SCREENINGBILATERAL DIGITAL SCREENING MAMMOGRAM WITH CAD: 03/20/2017HISTORY: Bilateral screening.RESULT:TECHNIQU E: The study was acquired using full field digital technology and interpreted from soft copy.Current study was also evaluated with a Computer Aided Detection (CAD).Comparison is made to exams dated: 01/04/2016 mammogram and 09/09/2014 mammogram - [facility].There are scattered fibroglandular elements in both breasts.No significant masses, calcifications, or other findings are seen in either breast.There has been no significant interval change.IMPRESSION: NEGATIVEThere is no mammographic evidence of malignancy.A 1 year screening mammogram is recommended.Patito Mota M.D.lp/penrad:03/20/2017 15:53:00Imaging Technologist: Mable SAAVEDRA)(Luke), [facility] Centerletter sent: Normal over 40Mammogram BI-RADS: 1 NegativeTranscriptionist: PenradTranscribe Date/Time: Mar 20 2017 3:11PDictated by: PATITO MOTA MDThis examination was interpreted and the report reviewed and electronically signed by: PATITO MOTA MD on Mar 20 2017 3:53PM [id number] Normal [facility] PROGRESSon 03-20-2017 Cholesterol HNO ID: [id number] thor: Jodi Parish RtService: (none)Author Type: (none)Type: Progress NotesFiled: 03/20/2017 3:08 PMNote Text: Radiology Service Progress NotePATIENT NAME: Chevy ShieldsMRN: [id number] OF SERVICE: March 20, 2017TIME: 3:08 PMPATIENT IDENTITY VERIFICATION COMPLETED USING TWO (2) METHODS: Patientconfirmed name verbally and Date of .PATIENT GENDER DATA: Female. status: : NoBreastfeeding status: NO.PATIENT RELEVANT IMPLANT DATA REVIEWED: Not ApplicableRADIOLOGY DEPARTMENT: [facility] IV DATA: Not applicableSIGNED BY: Jodi Parish RtDecembsamantha 2016 3:08 PM Normal [facility] Vital Signs Date Time Vital Sign Value Performing Clinician Facility 09-23-2024 15:02-0400 Body height 152.[address] Dionisio De La Garza DO Work Phone: [facility] 09-23-2024 14:58-0400 Body mass index (BMI) [Ratio] 20.9 kg/m2 Dr. Dionisio De La Garza DO Work Phone: [facility] 09-23-2024 14:58-0400 Body weight 48.[address] Dionisio De La Garza DO Work Phone: [facility] 09-23-2024 14:58-0400 Diastolic blood pressure 62 mm[Hg] Dr. Dionisio De La Garza DO Work Phone: [facility] 09-23-2024 14:58-0400 Systolic blood pressure 110 mm[Hg] Dr. Dionisio De La Garza DO Work Phone: [facility] 09-09-2024 10:140400 Body height 152.4 cm Dionisio De La Garza DO Work Phone: [facility] 09-09-2024 10:140400 Body mass index (BMI) [Ratio] 20.78 kg/m2 Dionisio Medranoa DO Work Phone: [facility] 09-09-2024 10:140400 Body temperature 97.39 [degF] Dionisio Medranoa DO Work Phone: [facility] 09-09-2024 10:140400 Body weight 48.26 kg Dionisio De La Garza DO Work Phone: [facility] 09-09-2024 10:140400 Diastolic blood pressure 69 mm[Hg] Dionisio Medranoa DO Work Phone: [facility] 09-09-2024 10:140400 Heart rate 90 /min Dionisio Medranoa DO Work Phone: [facility] 09-09-2024 10:140400 SaO2% (BldA) [Mass fraction] 100 % Dionisio De La Garza DO Work Phone: [facility] 09-09-2024 10:14-0400 Systolic blood pressure 100 mm[Hg] Dionisio Medranoa DO Work Phone: [facility] 08-06-2023 10:120400 Body height 152.4 cm Dionisio Medranoa DO Work Phone: [facility] 08-06-2023 10:12-0400 Body mass index (BMI) [Ratio] 20.7 kg/m2 Dionisio Medranoa DO Work Phone: [facility] 08-06-2023 10:120400 Body temperature 97.11 [degF] Dionisio Medranoa DO Work Phone: [facility] 08-06-2023 10:120400 Body weight 48.08 kg Dionisio Medranoa DO Work Phone: [facility] 08-06-2023 10:12-0400 Diastolic blood pressure 73 mm[Hg] Dionisio De La Garza DO Work Phone: [facility] 08-06-2023 10:12-0400 Heart rate 78 /min Dionisio De La Garza DO Work Phone: [facility] 08-06-2023 10:12-0400 SaO2% (BldA) [Mass fraction] 98 % Dionisio De La Garza DO Work Phone: [facility] 08-06-2023 10:12-0400 Systolic blood pressure 113 mm[Hg] Dionisio De La Garza DO Work Phone: [facility] 03-11-2023 09:49-0500 Body height 152.4 cm Marychuy Umana DO Work Phone: [facility] 03-11-2023 09:49-0500 Body mass index (BMI) [Ratio] 20.31 kg/m2 Marychuy Umana DO Work Phone: [facility] 03-11-2023 09:49-0500 Body temperature 98.6 [degF] [facility] 03-11-2023 09:49-0500 Body weight 47.17 kg Marychuy Umana DO Work Phone: [facility] 03-11-2023 09:49-0500 Diastolic blood pressure 74 mm[Hg] Marychuy Umana DO [facility] 03-11-2023 09:49-0500 Heart rate 113 /min Marychuy Umana DO Work Phone: [facility] 03-11-2023 09:49-0500 SaO2% (BldA) [Mass fraction] 95 % Marychuy Umana DO Work Phone: [facility] 03-11-2023 09:49-0500 Systolic blood pressure 115 mm[Hg] Marychuy Umana DO Work Phone: [facility] 08-07-2021 08:41-0400 Body height 152.[address] Dionisio De La Garza Work Phone: [facility] Work Phone: 08-07-2021 08:41-0400 Body mass index (BMI) [Ratio] 20.7 kg/m2 Dr. Dionisio De La Garza Work Phone: [facility] Work Phone: 08-07-2021 08:41-0400 Body weight 48.[address] Dionisio De La Garza Work Phone: [facility] Work Phone: 08-07-2021 08:41-0400 Diastolic blood pressure 60 mm[Hg] Dr. Dionisio De La Garza Work Phone: [facility] Work Phone: 08-07-2021 08:41-0400 Systolic blood pressure 100 mm[Hg] Dr. Dionisio De La Garza Work Phone: [facility] Work Phone: Encounters Encounter Date Encounter Type Care Provider Facility Start: 09-23-2024 End: 09-23-2024 Patient encounter status Shashank Olson DIRECTOR PUBLIC SERVICE-C [facility] Start: 09-23-2024 End: 09-23-2024 ambulatory Shashank Olson DIRECTOR PUBLIC SERVICE Facility:[facility] Start: 09-23-2024 End: 09-23-2024 Patient encounter procedure Shashank Olson DIRECTOR PUBLIC SERVICE-C [facility] Work Phone: Start: 09-13-2024 End: 09-13-2024 Orders Only Dionisio De La Garza DO Work Phone: [facility] Comment on above: Hypokalemia (Primary Dx) Start: 09-09-2024 End: 09-09-2024 Patient encounter procedure Dionisio De La Garza DO Work Phone: [employer] Work Phone: Start: 09-09-2024 End: 09-09-2024 Periodic preventive med est patient 65yrs& older Dionisio De La Garza DO Work Phone: [facility] Comment on above: Annual physical exam (Primary Dx); Family history of rectal cancer; Viral URI; Lipid screening; Meniere's disease, unspecified laterality Start: 09-09-2024 End: 09-09-2024 [facility] Start: 09-09-2024 End: 09-09-2024 Encounter for general adult medical examination [facility]: 01-20-2024 End: 01-20-2024 ambulatory Dionisio De La Garza Facility:[facility] Start: 01-20-2024 End: 01-20-2024 ambulatory Dionisio De La Garza Facility:[facility] Start: 08-06-2023 End: 08-06-2023 Patient encounter procedure Dionisio De La Garza DO Work Phone: [facility] Start: 08-06-2023 End: 08-06-2023 Periodic preventive med est patient 40-64yrs Dionisio De La Garza DO Work Phone: [facility] Comment on above: Annual physical exam (Primary Dx); Meniere's disease, unspecified laterality; Family history of rectal cancer; Allergic dermatitis; Allergic conjunctivitis of left eye Start: 07-15-2023 Refill Dionisio Patel adrianaescobar DO Work Phone: [facility] Start: 05-02-2023 Refill Dionisio camarena DO Work Phone: [facility] Start: 03-11-2023 End: 03-11-2023 Office outpatient visit 15 minutes Marychuy Umana DO Work Phone: [facility] Comment on above: Acute URI (Primary D x) Start: 08-07-2021 End: 08-07-[address] Dionisio De La Garza Work Phone: [facility] Start: 03-20-2017 End: 03-20-2017 [facility] Procedures Date Procedure Procedure Detail Performing Clinician Start: 09-09-2024 Adult depression scr eening assessment Dionisio De La Garza DO Work Phone: Start: 09-09-2024 Lipid 1996 panel - S lisa or Plasma Dionisio De La Garza DO Work Phone: Start: 09-17-2023 Mammography Dionisio alba DO Work Phone: Start: 08-06-2023 Adult depression scr eening assessment Dionisio De La Garza DO Work Phone: Start: 08-13-2022 Mammography Marychuy Umana DO Work Phone: Start: 08-07-2021 Screening mammography D r. Dionisio De La Garza Work Phone: Start: 03-04-2019 Colonoscopy Marychuy Umana DO Work Phone: Plan of Treatment Date Care Activity Detail Author Start: 2034 RSV Immunization for Adults (1 - 1-dose 75+ series) RSV Immunization for Adults (1 - 1-dose 75+ series) [facility] Start: 09-09-2029 Lipid panel Lipid Panel [facility] Start: 03-04-2029 Screening for malign ant neoplasm of colon [facility] Start: 11-26-2025 Screening for malign ant neoplasm of colon FIT-DNA [facility] Start: 09-09-2025 Depression Screening Depression Scre ening [facility] Start: 11-30-2024 Influenza vaccination Influenz a Vaccine (Season Ended) [facility] Start: 10-13-2024 End: 09-13-2025 Potassium [Moles/volume] in Serum or Plasma Potassium Lab Routine Hypokalemia Expected: 10/13/2024 (Approximate), Expires: 09/13/2025 [facility] Work Phone: Comment on above: Expected: 10/13/2024 (Approximate), Expires: 09/13/2025 Start: 09-23-2024 Screening mammography SCRN ANTONIO M (CAD)W/[facility] Start: 09-16-2024 Screening for malign ant neoplasm of breast Mammogram [facility] Start: 09-09-2024 End: 09-09-2025 CBC W Auto Differential panel - Blood CBC auto differential Lab Routine Annual physical exam Expected: 09/09/2024 (Approximate), Expires: 09/09/2025 [facility] Work Phone: Comment on above: Expected: 09/09/2024 (Approximate), Expires: 09/09/2025 Start: 09-09-2024 End: 09-09-2025 Comprehensive metabolic 1998 panel - Serum or Plasma Comprehensive metabolic panel Lab Routine Annual physical exam Expected: 09/09/2024 (Approximate), Expires: 09/09/2025 [facility] Comment on above: Expected: 09/09/2024 (Approximate), Expires: 09/09/2025 Start: 09-09-2024 End: 09-09-2025 Lipid 1996 panel - Serum or Plasma Lipid panel Lab Routine Lipid screening Expected: 09/09/2024 (Approximate), Expires: 09/09/2025 [facility] Comment on above: Expected: 09/09/2024 (Approximate), Expires: 09/09/2025 Start: 08-05-2024 Depression Screening Depression Scre ening [facility] Start: 12-01-2023 COVID-19 Vaccine ( season) COVID-19 Vaccine () [facility] Start: 08-14-2023 Screening for malign ant neoplasm of breast Mammogram [facility] Start: 08-06-2023 End: 08-06-2023 Patient encounter procedure 08/06/2023 10:30 AM EDT Office Visit [facility] [address] [place] [address] Dionisio De La Garza F, [address] [place] [address] [facility] Start: 11-30-2022 COVID-19 Vaccine ( season) COVID-19 Vaccine () [facility] Start: 2019 RSV Immunization age d 60 or older (1 - 1-dose 60+ series) RSV Immunization aged 60 or older (1 - 1-dose 60+ series) [facility] Start: 2009 Zoster Vaccines (1 of 2) Zoster Vacc andi (1 of 2) [facility] Start: 1989 Screening for malign ant neoplasm of cervix [facility] Start: 02-13-1980 Screening for malign ant neoplasm of cervix Pap Smear [facility] Start: 1978 DTaP/Tdap/Td Vaccine s (1 - Tdap) DTaP/Tdap/Td Vaccines (1 - Tdap) [facility] Start: 1977 Diabetes mellitus screening Diabetes Screening [facility] Start: 1977 Hepatitis C screening Hepatitis C Sc reening [facility] Start: 1971 Depression Screening Depression Scre ening [facility] Start: 02-13-1960 MMR Vaccines (1 of 1 - Standard series) MMR Vaccines (1 of 1 - Standard series) [facility] Start: 1959 Annual wellness visit Medicare Initial Physical (IPPE) [facility] Start: 1959 HIV screening HIV Screening [facility] Start: 1959 Screening for malign ant neoplasm of colon [facility] Start: 1959 Screening for osteoporosis Bone Density Scan [facility] Immunizations Immunization Date Immunization Notes Care Provider Vivian munoz 09-09-2024 Pneumococcal Conjuga te PCV20, Pf (Prevnar 20) Dionisio Patelnicol DO Work Phone: [facility] 03-02-2023 influenza virus vacc ine, unspecified formulation Dionisio Frederic DO Work Phone: [facility] 12-30-2020 Influenza, injectabl e, quadrivalent, preservative free Marychuyeduin Umana DO Work Phone: [facility] 12-10-2019 Influenza, injectabl e, quadrivalent, preservative free Marychuy Umana DO Work Phone: [facility] 12-19-2017 Influenza, injectabl e, quadrivalent, preservative free Marychuy Umana DO Work Phone: [facility] Payers Date Payer Category Payer Self-pay [id number] 2022 Commercial Managed [facility] [employer] [id number] 2022 Unknown [facility] [employer] [id number] 2022-Present [address] [address] Commercial [id number] 2022 Unknown [id number] Unknown [id number] Unknown [id number] Unknown [id number] Unknown [id number] Social History Date Type Detail Facility Start: 08-07-2021 Tobacco smoking stat [facility] Unknown if ever smoked [facility] Work Phone: Start: 1960 Sex Assigned At Female S [facility] Start: 08-06-2023 [facility] Start: 07-08-1975 End: 07-08-1983 History of tobacco use Current smoker [facility] Start: 07-08-1975 End: 07-08-1983 History of tobacco use Cigarette Smoker [facility] Start: 03-11-2023 End: 09-13-2024 Alcohol intake Current drinker of alcohol (finding) [facility] Start: 03-11-2023 End: 08-06-2023 Alcohol intake [facility] Start: 08-19-2022 End: 08-06-2023 Tobacco use panel [facility] Start: 1960 Sex Assigned At Not on file [facility] Start: 06-24-2023 Gender identity Identifies as female gender (finding) [facility] Start: 08-06-2023 Tobacco use and exposure Smoke less tobacco non-user [facility] Has the [employer], [employer], or [employer] threatened to shut off services in your home in past 12Mo No [facility] Are you now , , , , never or living with a partner? [facility] Frequency of Alcohol Consumption Not on file [facility] Do you feel stress - tense, restless, nervous, or anxious, or unable to sleep at night because your mind is troubled all the time - these days [OSQ] Not at all [facility] (I/We) worried wheth er (my/our) food would run out before (I/we) got money to buy more. Never true [facility] Start: 10-30-2021 Sex Female (finding) [facility] Start: 03-08-2023 Tobacco smoking stat us [facility] Never smoked tobacco (finding) [facility] Functional Status Date Assessment Result Facility 09-09-2024 Patient Health Questionnaire 2 item (PHQ- 2) [Reported] [facility] Clinical Notes 03-11-2023 to 09-09-2024 Dionisio De La Garza DO - 09/09/2024 10:20 AM Luz Lara MA - 09/09/2024 10:20 AM Ivette De La Garza DO - 08/06/2023 10:30 AM EDTPatient Instructions Note Date & Type Note Facility 09-09-2024 History of Presen t illness Narrative Images from the original note were not included. [facility] - [address] [address] [facility] [address] Visit type: Established Patient Reason for Visit: Annual Exam Assessment / Plan: Chevy was seen today for annual exam. Diagnoses and all orders for this visit: Annual physical exam (Primary) - CBC auto differential; Future - Comprehensive metabolic panel; Future - CBC auto differential - Comprehensive metabolic panel Family history of rectal cancer Viral URI Comments: Mild, Robitussin and liquids Lipid screening - Lipid panel; Future - Lipid panel Meniere's disease, unspecified laterality Comments: stable, continue Dyazide Other orders - triamterene-hydroCHLOROthiazide (Dyazide) 37.5-25 MG capsule; Take 1 capsule by mouth every morning. 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 Vitamin D 1000 units, calcium 1200 mg a day mesc-nuk-rolvaop One-A-Day women's vitamin continue exercise 150 minutes/week Subjective: Patient ID: Chevy Shields is a 64 y.o. female. HPI annual physical for patient with stable M ni re's disease open Daily Dyazide. Continues not to smoke or drink. She works hard but will be retiring in March. 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 She has deferred colonoscopy Review of Systems mild sinus and head congestion. Negative COVID exam a few days ago. No high fever or purulent phlegm or rhinorrhea. No chest pain or pleurisy. No shortness of breath. No heartburn or abdominal pain. No bowel changes. No constipation diarrhea melena or blood. No postmenopausal vaginal bleeding. No breast complaints. Rare arthralgia. No NSAID use. No skin changes. No anxiety or depression Allergies[1] Current Medications[2] Problem List[3] Social History Tobacco Use Smoking status: Former Current packs/day: 0.00 Average packs/day: 0.3 packs/day for 8.0 years (2.0 ttl pk-yrs) Types: Cigarettes Start date: 07/08/1975 Quit date: 07/08/1983 Years since quittin.2 Smokeless tobacco: Never Substance Use Topics Alcohol use: Yes Alcohol/week: 2.0 standard drinks of alcohol Surgical History[4] Family History[5] Objective: BP 100/69 Pulse 90 Temp 36.3 C (97.4 F) (Temporal) Ht 5' (1.524 m) Wt 106 lb 6.4 oz (48.3 kg) SpO2 100% BMI 20.78 kg/m Physical Exam Vitals reviewed. Constitutional: General: She is not in acute distress. Appearance: She is not ill-appearing. HENT: Right Ear: Tympanic membrane normal. Left Ear: Tympanic membrane normal. Nose: No congestion or rhinorrhea. Mouth/Throat: Pharynx: No oropharyngeal exudate or posterior oropharyngeal erythema. Eyes: General: No scleral icterus. Neck: Vascular: No carotid bruit. Comments: No thyroid masses Cardiovascular: Rate and Rhythm: Normal rate and regular rhythm. Pulses: Normal pulses. Heart sounds: Normal heart sounds. No murmur heard. Pulmonary: Effort: Pulmonary effort is normal. Breath sounds: Normal breath sounds. Abdominal: General: Bowel sounds are normal. There is no distension. Palpations: Abdomen is soft. There is no mass. Tenderness: There is no abdominal tenderness. Hernia: No hernia is present. Comments: Slender without hepatosplenomegaly masses or bruits. No adenopathy. Musculoskeletal: Right lower leg: No edema. Left lower leg: No edema. Lymphadenopathy: Cervical: No cervical adenopathy. Skin: General: Skin is warm. Findings: No rash. Neurological: General: No focal deficit present. Mental Status: She is alert and oriented to person, place, and time. Deep Tendon Reflexes: Reflexes normal. Psychiatric: Mood and Affect: Mood normal. Thought Content: Thought content normal. [1] No Known Allergies [2] Current Outpatient Medications: cholecalciferol (Vitamin D-3) 25 MCG (1000 UT) tablet, Take 1 tablet by mouth daily., Disp: , Rfl: estradiol (Estrace) 0.1 MG/GM vaginal cream, Insert 2 g into the vagina daily., Disp: , Rfl: meclizine (Antivert) 25 MG tablet, Take 25 mg by mouth if needed., Disp: , Rfl: triamterene-hydroCHLOROthiazide (Dyazide) 37.5-25 MG capsule, Take 1 capsule by mouth every morning., Disp: 90 capsule, Rfl: 3 [3] Patient Active Problem List Diagnosis Meniere disease Frequent UTI Family history of rectal cancer [4] Past Surgical History: Procedure Laterality Date APPENDECTOMY 1967 SECTION (HISTORICAL) times 2 [5] Family History Problem Relation Name Age of Onset Uterine cancer Mother age 70 Heart disease Father 70 age 75 Lupus Sister Delisa of infection, age 45 Coronary artery disease Sister 1/2 Mariah 70 CABG Diabetes Sister 1/2 Mariah Stroke Sister 1/2 Mariah age 78 in 10/22 in ECF No Known Problems Sister Carol No Known Problems Brother Shakir No Known Problems Brother Mani Other ([id number]) Brother Mehul in [place] Prostate cancer Brother Leonides alive age 76 Rectal cancer Brother Leonides 64 Heart disease Maternal Grandmother in 70s Heart disease Maternal Grandfather in 70s No Known Problems Paternal Grandmother unknown, but in 40s No Known Problems Paternal Grandfather After obtaining consent, and per orders of Dr. De La Garza, injection of PREVNAR 20 given in Right deltoid by Génesis Lara MA. Patient instructed to remain in clinic for 20 minutes afterwards, and to report any adverse reaction to me immediately. Did patient supply medication?No documented in this encounter [facility] 08-06-2023 History of Presen t illness Narrative Images from the original note were not included. [facility] [address] [facility] [address] Visit type: Established Patient Reason for Visit: Annual Exam (physical) Assessment / Plan: Chevy was seen today for annual exam. Diagnoses and all orders for this visit: Annual physical exam (Primary) Comments: Defers colonoscopy, get additional lab and bone density when Medicare is in place in January Meniere's disease, unspecified laterality Comments: Stable, continue Dyazide Family history of rectal cancer Allergic dermatitis Allergic conjunctivitis of left eye Comments: Mild, recurrent, Optivar Other orders - triamterene-hydroCHLOROthiazide (Dyazide) 37.5-25 MG capsule; Take 1 capsule by mouth every morning. - azelastine (Optivar) 0.05 % ophthalmic solution; Administer 1 drop into the left eye 2 times daily. Subjective: Patient ID: Chevy Shields is a 63 y.o. female. HPI-patient with history of M ni re's disease for many years presents for overall physical. Has felt well. Recent lab work through work showed a stable lipid panel. Hemoglobin A1c very low as well. She feels good except for a few weeks of itchy left upper eyelid and eyeball. Saw climate change analyst last year treated with contact dermatitis with steroid cream. She denies photophobia or otalgia. Some sense of grittiness is evident. No purulent mattering. No diplopia or history of glaucoma or other issues. Review of Systems feels well. Weight and appetite are stable. She still works physically hard. No chronic earache sore throat or cough. Non-smoker. No chest pain dyspnea palpitations. No heartburn or abdominal pain. Bowels are regular. No melena or blood. No constipation diarrhea. No close menopausal vaginal bleeding. Will be a Pap smear mammogram and breast exam soon. Her brother had rectal cancer but she defers colonoscopy. Some arthralgias in her left hip but no excessive pain or NSAID use. No anxiety or depression. No Known Allergies Current Outpatient Medications on File Prior to Visit Medication Sig Dispense Refill aspirin 81 MG EC tablet Take 1 tablet by mouth daily. cholecalciferol (Vitamin D-3) 25 MCG (1000 UT) tablet Take 1 tablet by mouth daily. estradiol (Estrace) 0.1 MG/GM vaginal cream Insert 2 g into the vagina daily. meclizine (Antivert) 25 MG tablet Take 25 mg by mouth if needed. [DISCONTINUED] triamterene-hydroCHLOROthiazide (Dyazide) 37.5-25 MG capsule TAKE 1 CAPSULE EVERY MORNING 90 capsule 0 [DISCONTINUED] azithromycin (Zithromax) 250 MG tablet Take 2 tabs (500 mg) by mouth today, than 1 daily for 4 days. (Patient not taking: Reported on 08/06/2023) 6 tablet 0 [DISCONTINUED] benzonatate (Tessalon) 100 MG capsule Take 100 mg by mouth 3 times daily as needed for cough. Do not crush or chew. [DISCONTINUED] guaiFENesin (Mucinex) 600 MG 12 hr tablet Take 1,200 mg by mouth 2 times daily. Do not crush, chew, or split. No current facility-administered medications on file prior to visit. Patient Active Problem List Diagnosis Meniere disease Frequent UTI Family history of rectal cancer Social History Tobacco Use Smoking status: Former Packs/day: 0.25 Years: 8.00 Additional pack years: 0.00 Total pack years: 2.00 Types: Cigarettes Quit date: 07/08/1983 Years since quittin.1 Smokeless tobacco: Never Substance Use Topics Alcohol use: Yes Alcohol/week: 2.0 standard drinks of alcohol Past Surgical History: Procedure Laterality Date APPENDECTOMY 1967 SECTION (HISTORICAL) times 2 Family History Problem Relation Name Age of Onset Uterine cancer Mother age 70 Heart disease Father 70 age 75 Lupus Sister Delisa of infection, age 45 Coronary artery disease Sister 1/2 Mariah 70 CABG Diabetes Sister 1/2 Mariah No Known Problems Sister Carol No Known Problems Brother Shakir No Known Problems Brother Mani/ Other ([id number]) Brother Mehul in [place] Prostate cancer Brother Leonides Rectal cancer Brother Leonides 64 Objective: BP 113/73 (BP Location: Right arm, Patient Position: Sitting, BP Cuff Size: Adult long) Pulse 78 Temp 36.2 C (97.1 F) (Temporal) Ht 5' (1.524 m) Wt 106 lb (48.1 kg) SpO2 98% BMI 20.70 kg/m Physical Exam Vitals reviewed. Constitutional: General: She is not in acute distress. Appearance: She is not ill-appearing. HENT: Right Ear: Tympanic membrane normal. Left Ear: Tympanic membrane normal. Nose: Nose normal. No congestion or rhinorrhea. Mouth/Throat: Pharynx: No oropharyngeal exudate. Eyes: General: No scleral icterus. Comments: Mild flushing of the conjunctiva. No notable edema or mattering. Nontender orbit. Pupils equal. Extract muscles are intact. Some dryness of the left upper eyelid noted. Neck: Vascular: No carotid bruit. Cardiovascular: Rate and Rhythm: Normal rate and regular rhythm. Pulses: Normal pulses. Heart sounds: No murmur heard. No gallop. Pulmonary: Breath sounds: Normal breath sounds. Abdominal: General: Bowel sounds are normal. Palpations: Abdomen is soft. Tenderness: There is no abdominal tenderness. Comments: Scaphoid without pain hepatosplenomegaly masses or bruits. No adenopathy Musculoskeletal: Right lower leg: No edema. Left lower leg: No edema. Comments: Decreased left hip flexion and external rotation Lymphadenopathy: Cervical: No cervical adenopathy. Skin: General: Skin is warm. Findings: No erythema, lesion or rash. Neurological: Mental Status: She is alert and oriented to person, place, and time. Gait: Gait normal. Deep Tendon Reflexes: Reflexes normal. Psychiatric: Mood and Affect: Mood normal. Thought Content: Thought content normal. Judgment: Judgment normal. documented in this encounter [facility] 08-06-2023 Instructions Dionisio De La Garza DO - 08/06/2023 10:30 AM EDT In January call for additional lab and bone density study documented in this encounter [facility] 07-15-2023 Telephone encount er Note Recent Visits Date Type Provider Dept 03/11/23 Office Visit DO Elvira Cabrera [facility] Showing recent visits within past 365 days and meeting all other requirements Future Appointments Date Type Provider Dept 08/06/23 Appointment DO Elvira Dinh [facility] Showing future appointments within next 90 days and meeting all other requirements Requested Prescriptions Pending Prescriptions Disp Refills triamterene-hydroCHLOROthiazide (Dyazide) 37.5-25 MG capsule [Pharmacy Med Name: TRIAMTERENE/HCTZ CAPS 37.5/25MG] 90 capsule 3 Sig: TAKE 1 CAPSULE EVERY MORNING Provider: Dionisio De La Garza DO Verified pharmacy: yes Verified day(s) supplied: yes Verified refill(s) needed (previous prescription showing no refills in chart): No - unable to verify prescription refills in chart Have you received any controlled medications from any other provider? No Overdue for visit: No If yes - patient scheduled? Yes Most recent labs completed in chart? N/A [facility] 07-15-2023 Miscellaneous Notes Formattin g of this note is different from the original. Recent Visits Date Type Provider Dept [facility]11[facility] recent visits within past 365 days and meeting all other requirements Future Appointments Date Type Provider Dept 08/06/23 Appointment DO Elvira Dinh [facility] Showing future appointments within next 90 days and meeting all other requirements Requested Prescriptions Pending Prescriptions Disp Refills triamterene-hydroCHLOROthiazide (Dyazide) 37.5-25 MG capsule [Pharmacy Med Name: TRIAMTERENE/HCTZ CAPS 37.5/25MG] 90 capsule 3 Sig: TAKE 1 CAPSULE EVERY MORNING Provider: Dionisio De La Garza DO Verified pharmacy: yes Verified day(s) supplied: yes Verified refill(s) needed (previous prescription showing no refills in chart): No - unable to verify prescription refills in chart Have you received any controlled medications from any other provider? No Overdue for visit: No If yes - patient scheduled? Yes Most recent labs completed in chart? N/A documented in this encounter [facility] 05-02-2023 Telephone encount er Note Last OV:03/11/24 Scheduled:n/a [facility] 05-02-2023 Miscellaneous Notes Formattin g of this note might be different from the original. Last OV:03/11/24 Scheduled:n/a documented in this encounter [facility] 03-11-2023 History of Presen t illness Narrative Images from the original note were not included. [facility] [address] [place] [address] [address] [facility] [id number] Visit type: Established Patient Reason for Visit: Cough (She was given mucinex and tessalon pearls with no help) and URI (Pt was seen at urgent care Saturday She states covid and influenza negative Saturday Pt had Flu & Covid vaccines Mar 02. ) Assessment and Plan Diagnoses and all orders for this visit: Acute URI - azithromycin (Zithromax) 250 MG tablet; Take 2 tabs (500 mg) by mouth today, than 1 daily for 4 days. - predniSONE (Deltasone) 10 MG tablet; Take 5 tablets (50 mg) by mouth daily for 2 days, THEN 4 tablets (40 mg) daily for 2 days, THEN 3 tablets (30 mg) daily for 2 days, THEN 2 tablets (20 mg) daily for 2 days, THEN 1 tablet (10 mg) daily for 2 days. - guaiFENesin-codeine (Robitussin-AC) 100-10 MG/5ML syrup; Take 5 mL by mouth every 6 hours as needed for cough for up to 5 days. No follow-ups on file. Subjective HPI Sx started on Cough, fatigue, vomiting Headache Went to on Saturday - tx'd with tessalon and mucinex COVID and flu neg at that time Coughing so hard that she will vomit at times Review of Systems Constitutional: Positive for fatigue and fever. Negative for appetite change and chills. HENT: Positive for sinus pain. Negative for congestion, ear discharge, ear pain, postnasal drip and sore throat. Respiratory: Positive for cough. Negative for shortness of breath and wheezing. Cardiovascular: Negative for chest pain, palpitations and leg swelling. Gastrointestinal: Positive for vomiting. Genitourinary: Negative. Neurological: Positive for headaches. No Known Allergies Outpatient Medications Prior to Visit Medication Sig Dispense Refill aspirin 81 MG EC tablet Take 1 tablet by mouth daily. benzonatate (Tessalon) 100 MG capsule Take 100 mg by mouth 3 times daily as needed for cough. Do not crush or chew. cholecalciferol (Vitamin D-3) 25 MCG (1000 UT) tablet Take 1 tablet by mouth daily. estradiol (Estrace) 0.1 MG/GM vaginal cream guaiFENesin (Mucinex) 600 MG 12 hr tablet Take 1,200 mg by mouth 2 times daily. Do not crush, chew, or split. meclizine (Antivert) 25 MG tablet Take 25 mg by mouth if needed. triamterene-hydroCHLOROthiazide (Dyazide) 37.5-25 MG capsule Take 1 capsule by mouth every morning. 90 capsule 3 No facility-administered medications prior to visit. Past Medical History: Diagnosis Date Breast cancer screening 07/2022 Shashank Olson NP Colon cancer screening 03/2019 neg cologuard Family history of rectal cancer 11/03/2018 Frequent UTI Urology consultation- chey- Estrogen tablet rx Meniere disease 2012 Mathurs, ENT Menopause 2010 Social History Socioeconomic History Marital status: Tobacco Use Smoking status: Former Packs/day: 1 Types: Cigarettes Quit date: 07/08/1983 Years since quittin.7 Smokeless tobacco: Never Substance and Sexual Activity Alcohol use: Yes Alcohol/week: 2.0 standard drinks of alcohol Drug use: Never Social History Narrative to Bill, NS or drinker. One son and one dtr, one GS and 2 GD. 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 [employer] Past Surgical History: Procedure Laterality Date APPENDECTOMY 1966 SECTION (HISTORICAL) times 2 Past Surgical History: Procedure Laterality Date APPENDECTOMY 1966 SECTION (HISTORICAL) times 2 Family History Problem Relation Name Age of Onset Uterine cancer Mother age 70 Heart disease Father 70 age 75 Lupus Sister of infection, age 45 Coronary artery disease Sister 1/2 70 CABG Diabetes Sister 1/2 No Known Problems Sister No Known Problems Brother No Known Problems Brother Other ([id number]) Brother in [place] Prostate cancer Brother Leonides Rectal cancer Brother Leonides 64 Objective BP 115/74 Pulse (!) 113 Temp 37 C (98.6 F) Ht 5' (1.524 m) Wt 104 lb (47.2 kg) SpO2 95% BMI 20.31 kg/m Physical Exam Vitals and nursing note reviewed. Constitutional: General: She is not in acute distress. Appearance: Normal appearance. She is ill-appearing. HENT: Head: Normocephalic and atraumatic. Right Ear: Tympanic membrane, ear canal and external ear normal. Left Ear: Tympanic membrane, ear canal and external ear normal. Nose: No congestion or rhinorrhea. Mouth/Throat: Mouth: Mucous membranes are moist. Pharynx: Oropharynx is clear. No oropharyngeal exudate or posterior oropharyngeal erythema. Eyes: Conjunctiva/sclera: Conjunctivae normal. Cardiovascular: Rate and Rhythm: Normal rate and regular rhythm. Pulses: Normal pulses. Heart sounds: Normal heart sounds. No murmur heard. No gallop. Pulmonary: Effort: Pulmonary effort is normal. No respiratory distress. Breath sounds: Normal breath sounds. No stridor. No wheezing, rhonchi or rales. Chest: Chest wall: No tenderness. Musculoskeletal: Cervical back: Neck supple. Right lower leg: No edema. Left lower leg: No edema. Lymphadenopathy: Cervical: No cervical adenopathy. Neurological: General: No focal deficit present. Mental Status: She is alert and oriented to person, place, and time. Psychiatric: Mood and Affect: Mood normal. Behavior: Behavior normal. Thought Content: Thought content normal. Judgment: Judgment normal. Data Reviewed POCT: Labs: Imaging/Testing: Chart Clean Up: There are no discontinued medications. Marychuy Umana DO 03/11/2023 10:11 AM documented in this encounter [facility] Evaluation note Diagnosis Onset Date Atrophic vaginitis acute Family history of cancer [facility] Work Phone: Evaluation note* Diagnosis Acute URI- Primary Acute upper respiratory infections of unspecified site [facility] Diagnosis Annual physical exam- Primary Routine general medical examination at a health care facility Meniere's disease, unspecified laterality Family history of rectal cancer Allergic dermatitis Contact dermatitis and other eczema, due to unspecified cause Allergic conjunctivitis of left eye Other chronic allergic conjunctivitis [facility] Diagnosis Annual physical exam- Primary Routine general medical examination at a health care facility Family history of rectal cancer Viral URI Acute upper respiratory infections of unspecified site Lipid screening Screening for lipoid disorders Meniere's disease, unspecified laterality [facility] Diagnosis Hypokalemia- Primary Hypopotassemia [facility] Diagnosis Onset Date Resolution Status Admit Date Encounter for routine gynecological examination noneactive August 312024 2:53pm [facility] Work Phone: Reason for referral (narrative)No reason for referral information available[facility] Work Phone: Summary Purpose Family History Relationship Condition Age at Onset Recorded Date/T betty mother Malignant neoplasm of uterus Unknown brother Malignant neoplasm of colon 63 Malignant neoplasm 70 Advance Directives Advance Directive Response Recorded Date/ Time Living Will No February 20 10:37am 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 No February 20, 2021 10:37am Chief Complaint and Reason for Visit Chief Complaint SCREENING Annual (MANAGER ACTIVITIES) Reason for Visit Atrophic vaginitis Family history of cancer Chief Complaint Admit Date screen for breast cancer September 23, 2024 2:19pm Annual (MANAGER ACTIVITIES) September 23, 2024 2:53 pm Reason for Visit Admit Date Encounter for routine gynecological exam ination September 23, 2024 2:53pm Additional Source Comments INFORMATION SOURCE (unrecogn ized section and content) DATE CREATED AUTHOR 09/24/2017 [facility] DATE CREATED AUTHOR AUTHOR'S ORGANIZ ATION 09/11/2024 [facility] DATE CREATED AUTHOR AUTHOR'S ORGANIZ ATION 09/22/2024 [facility] Goals (unrecognized section and content) Goals may be documented in a n alternate sectionGoals may be documented in an alternate section Reason for Visit (unrecogniz ed section and content) Reason Comments Cough She was given mucine x and tessalon pearls with no help URI Pt was seen at [facility] Saturday She states covid and influenza negative Saturday Pt had Flu & Covid vaccines Mar 02. 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 Specialty Start Date End Date Dionisio De La Garza DO [address] [place] [address] PCP - General 07/11/15 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 Dionisio De La Garza DO Primary Care Provider Active Team Status: Active Member Role Status Dates Dr. Dionisio De La Garza DO Primary Care Provider Active Start: September 23, 2024 Shashank Olson DIRECTOR PUBLIC SERVICE, DIRECTOR PUBLIC SERVICE-C Attending Provider Active Start: September 23, 2024 Shashank Olson DIRECTOR PUBLIC SERVICE, DIRECTOR PUBLIC SERVICE-C Referring Provider Active Start: September 23, 2024 Team Status: Inactive Member Role Status Dates Dr. Dionisio De La Garza DO Primary Care Provider Active Start: September 23, 2024 End: September 23, 2024 Dr. Dionisio De La Garza DO Referring Provider Active Start: September 23, 2024 End: September 23, 2024 Shashank Olson DIRECTOR PUBLIC SERVICE, DIRECTOR PUBLIC SERVICE-C Attending Provider Active Start: September 23, 2024 End: September 23, 2024 FOR RECORDS PERTAINING TO PATIENTS WHO ARE OR HAVE BEEN ENROLLED IN A CHEMICAL DEPENDENCY/SUBSTANCEABUSE PROGRAM, SOME INFORMATION MAY BE OMITTED. This clinical summary was aggregated from multiple sources. Caution should be exercised in using it in the provision of clinical care. This summary normalizes information from multiple sources, and as a consequence, information in this document may materially change the coding, format and clinical context of patient data. In addition, data may be omitted in some cases. CLINICAL DECISIONS SHOULD BE BASED ON THE PRIMARY CLINICAL RECORDS. [email or web address] provides no warranty or guarantee of the accuracy or completeness of information in this document.
== END | disposition home or self-care (01) ==
LOC: OPBI 14:25
PROVIDERS: PCP Family Medicine; Referring Provider Nurse Practitioner Women's Health; Visit Provider Nurse Practitioner Women's Health
DX: Z12.31 Encounter for screening mammogram for malignant neoplasm of breast (principal)
CPT/HCPCS: 77063; 77067

== ENCOUNTER → 2025-02-01 | Outpatient (CLI) | payer OTHER, SELFPAY | END | disposition home or self-care (01) | LOC: LABSPEC 11:24 | PROVIDERS: PCP Family Medicine; Visit Provider Physician Assistant | DX: R30.0 Dysuria (principal) | CPT/HCPCS: 87086; 87088 ==